=== PATIENT | female | born 2005 | race Two or more races ===

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

== ENCOUNTER 2025-01-07 10:47 | Inpatient (IN) | payer OTHER ==
[2025-01-07] VITALS (13 sets, daily range): BP systolic 108–140; BP diastolic 59–83
[~2025-01-07] VITALS: Ht 162.6 cm; Wt 83.9 kg
[2025-01-07] MEDS ORDERED: OXYTOCIN 500 ML IV ONE (12:00)
[2025-01-07 12:31] LABS: PH,URINE 6.5 (5.0-8.0); URINE APPEARANCE Clear; URINE BILIRRUBIN Negative (NEGATIVE); URINE BLOOD Negative; URINE COLOR Yellow; URINE GLUCOSE Negative (NEGATIVE); URINE KETONE Negative (NEGATIVE); URINE LEUKOCYTE Moderate; URINE NITRATE Negative; URINE PROTEIN Trace (NEGATIVE)
[2025-01-07 12:36] LABS: URINE BACTERIA 1780.7 uL (0.0-1933); URINE EPITHELIAL CELLS 29.9 uL (0.0-38.8); URINE RBC 2.3 uL (0.0-20.8)
[2025-01-07 12:37] LABS: BASO % 0.2 % (0.1-1.2); EOS # 0.07 (0.04-0.54); EOS % 0.6 % (0.7-7.0); HEMATOCRIT 37.3 % (34.1-44.9); HEMOGLOBIN 12.3 g/dL (11.2-15.7); LYMPH % 16.4 % (19.3-53.1); MEAN CORPUSCULAR HEMOGLOBIN 28.1 pg (25.6-32.2); MONO # 0.58 (0.24-0.82); NEUT # 8.96 (1.56-6.13); NEUT % 77.5 % (34.0-71.1); PLATELET COUNT 247 K/uL (163-369); RED BLOOD COUNT 4.38 M/uL (3.93-5.22); RED CELL DISTRIBUTION WIDTH 12.7 % (11.6-14.4)
[2025-01-07 12:53] LABS: INR 0.94; PARTIAL THROMBOPLASTIN TIME 32.2 SECONDS (22.0-34.0); PROTHROMBIN TIME 10.3 SECONDS (9.0-11.5)
[2025-01-07 13:01] LABS: ALBUMIN 2.7 gm/dL (3.4-5.0); BILIRUBIN TOTAL 0.4 mg/dL (0.3-1.2); CALCIUM 9.1 mg/dL (8.5-10.1); CREATININE SERUM 0.6 mg/dL (0.55-1.02); GFR 128.78; GLOBULINA 3.7 G/DL (2.4-3.5); POTASSIUM 4.33 mEq/L (3.5-5.1); TOTAL PROTEIN 6.4 gm/dL (6.4-8.2)
[2025-01-07] MEDS ORDERED: RINGERS SOLUTION,LACTATED 1,000 ML IV SCH (13:45)
[2025-01-07] MEDS ORDERED: ERYTHROMYCIN BASE OPHT 1GM EACH TUBE OP ONE (15:14)
[2025-01-07] MEDS ORDERED: LIDOCAINE HCL 1% 10ML VIAL ONE ×2 (15:14→16:47)
[2025-01-07] MEDS ORDERED: CHLORHEXIDINE GLUCONATE 120 ML BOTTLE TOP ONE ×2 (15:14→17:45)
[2025-01-07] MEDS ORDERED: OXYTOCIN 20 UNITS/1000ML RL PIGGYBAG IV ONE (15:14)
[2025-01-07] MEDS ORDERED: IBUprofen 400 MG TABLET PO PRN (17:45)
[2025-01-07] MEDS ORDERED: OXYTOCIN 1,000 ML IV SCH (17:45)
[2025-01-08] VITALS: BP 111/66
[2025-01-08 07:39] LABS: BASO % 0.2 % (0.1-1.2); EOS # 0.02 (0.04-0.54); EOS % 0.1 % (0.7-7.0); HEMATOCRIT 32.8 % (34.1-44.9); HEMOGLOBIN 11.1 g/dL (11.2-15.7); LYMPH # 2.13 (1.18-3.74); MEAN CORPUSCULAR HEMOGLOBIN 28.4 pg (25.6-32.2); MONO # 0.93 (0.24-0.82); MONO % 5.7 % (4.7-12.5); NEUT # 13.22 (1.56-6.13); NEUT % 80.5 % (34.0-71.1); PLATELET COUNT 215 K/uL (163-369); RED BLOOD COUNT 3.91 M/uL (3.93-5.22); RED CELL DISTRIBUTION WIDTH 12.8 % (11.6-14.4)
[2025-01-08 08:00] VITALS: BP 122/80
[2025-01-08 16:21] VITALS: BP 115/72
[2025-01-09] VITALS: BP 110/74
[2025-01-09 08:37] VITALS: BP 105/62
== END 2025-01-09 15:12 | disposition home or self-care (01) | DRG 807 ==
LOC: LDR 10:47 → OB/GYN 18:21
PROVIDERS: ADMIT Obstetrics & Gynecology; ATTEND Obstetrics & Gynecology
PROC: 10E0XZZ Delivery of Products of Conception, External Approach (ICD-10-PCS; principal; 2025-01-07)
PROC: 0KQM0ZZ Repair Perineum Muscle, Open Approach (ICD-10-PCS; 2025-01-07)
PROC: 0UQMXZZ Repair Vulva, External Approach (ICD-10-PCS; 2025-01-07)
PROC: 4A1HXCZ Monitoring of Products of Conception, Cardiac Rate, External Approach (ICD-10-PCS; 2025-01-07)
DX: O71.4 Obstetric high vaginal laceration alone (principal); O71.82 Other specified trauma to perineum and vulva; O69.81X0 Labor and delivery complicated by cord around neck, without compression, not applicable or unspecified; Z37.0 Single live birth; Z3A.37 37 weeks gestation of pregnancy